=== PATIENT | female | born 1995 | race Caucasian/White ===

== ENCOUNTER 2019-04-05 12:41 | Observation (INO) | payer OTHER ==
--- NOTE | 2019-04-05 14:33 | XRAY ---
Indication: Decreased heart rate. Ultrasound biophysical profile study was performed. Comparison: None There is a single intrauterine with heart rate 127 bpm. Anterior placenta without abruption/previa. BPD measures 8.73 cm corresponding to 35 weeks 2 days. HC measures 32.21 cm corresponding to 36 weeks 3 days. AC measures 28.25 cm corresponding to 32 weeks 2 days. FL measures 6.21 cm corresponding to 32 weeks 1 day. RAIN is 15.2 cm. 2 points given for breathing movements, movements, tone, and qualitative amniotic fluid volume. Impression: 1. Single viable intrauterine with mean gestational age 34 weeks 0 days. Normal progression in the with respect to March 01, 2019 exam. 2. Total biophysical profile score is 8 out of 8.
[2019-04-05 15:07] VITALS: BP 105/55; PULSE 90; O2SAT 97
== END 2019-04-05 14:30 | disposition home or self-care (01) ==
LOC: OB 12:41
PROVIDERS: ADMIT Family Medicine; ATTEND Family Medicine
DX: Z34.83 Encounter for supervision of other normal pregnancy, third trimester (principal)
CPT/HCPCS: 59025; 76818; G0378

== ENCOUNTER 2019-04-12 13:13 | Observation (INO) | payer OTHER ==
[2019-04-12 13:47] LABS: Appearance TURBID (CLEAR); Bacteria RARE /HPF (NEGATIVE); Bilirubin NEGATIVE (NEGATIVE); Blood NEGATIVE Ery/ul (0-5); Epithelial Cells RARE /HPF (FEW); Glucose NEGATIVE (NEGATIVE); Ketones NEGATIVE (NEGATIVE); Leukocyte Esterase NEGATIVE (NEGATIVE); Mucus SLIGHT /HPF (NEGATIVE); Nitrite NEGATIVE (NEGATIVE); Protein,Urine Dip NEGATIVE (Negative); Specific Gravity 1.015 (1.005-1.025); Urobilinogen NEGATIVE mg/dL (0-1)
[2019-04-12 13:58] VITALS: BP 109/72; PULSE 84
[2019-04-12 14:31] LABS: Amphetamine,Urine NEGATIVE (NEGATIVE); Barbiturate,Urine NEGATIVE (NEGATIVE); Benzodiazepine,Urine NEGATIVE (NEGATIVE); Cocaine,Urine NEGATIVE (NEGATIVE); Methadone,Urine NEGATIVE (NEGATIVE); Opiate,Urine NEGATIVE (NEGATIVE); PCP,Urine NEGATIVE (NEGATIVE); THC,Urine NEGATIVE (NEGATIVE)
== END 2019-04-12 15:07 | disposition home or self-care (01) ==
LOC: OB 13:13
PROVIDERS: ADMIT Family Medicine; ATTEND Family Medicine
DX: Z34.03 Encounter for supervision of normal first pregnancy, third trimester (principal)
CPT/HCPCS: 59025; 80307; 81001; G0378

== ENCOUNTER 2019-04-28 10:05 | Observation (INO) | payer OTHER ==
[2019-04-28 10:46] VITALS: BP 118/77; PULSE 77
== END 2019-04-28 13:45 | disposition home or self-care (01) ==
LOC: OB 10:05 → UNDOADMOB 10:05 → UNDODISOB 13:45
PROVIDERS: ADMIT Family Medicine; ATTEND Family Medicine
DX: Z34.83 Encounter for supervision of other normal pregnancy, third trimester (principal)
CPT/HCPCS: G0378

== ENCOUNTER 2019-05-06 00:04 | Inpatient (IN) | payer OTHER ==
[2019-05-07] MEDS ORDERED: PITOCIN 30 UNITS/ LR 500 ML 500 ML IV SCH ×2 (00:01→08:30)
[2019-05-07] MEDS ORDERED: Zofran 4 MG/2 ML VIAL IV PRN (00:01)
[2019-05-07] MEDS ORDERED: Cervidil 10 MG VAG SCH (00:01)
[2019-05-07] MEDS ORDERED: XYLOCAINE 1% HCL 20 ML MDV IJ PRN (00:01)
[2019-05-07] MEDS ORDERED: BRETHINE 1 MG/ML SQ PRN (00:01)
[2019-05-07 00:47] LABS: Absolute Neutrophil Ct (ANC) 8.72 (1.4-6.9); BASOPHIL % 0.2 % (0.0-0.4); Basophil (Absolute #) 0.02 (0-0.4); Eosinophil % 2.7 % (0.00-5.0); Eosinophil (Absolute #) 0.32 (0-0.5); Hematocrit 34.6 % (35-47); Hemoglobin 11.5 gm/dl (12.0-16.0); Lymphocyte (Absolute #) 1.78 (1.0-4.6); Mean Cell Volume 96.9 fl (78-100); Mean Corpuscular Hemoglobin 32.2 pg (26-32); Mean Corpuscular Hgb Concent. 33.2 g/dl (32-36); Mean Platelet Volume 10.4 fl (6-9.5); Monocytes % 8.4 % (0.0-12.0); Neutrophil % 73.7 % (36.0-66.0); Platelet Count 233 K/mm3 (150-450); Red Blood Count 3.57 M/mm3 (4.1-5.4); Red Cell Distribution Width 13.4 % (11.5-14.0); White Blood Count 11.8 K/mm3 (4.0-10.5)
[2019-05-07 01:21] LABS: Amphetamine,Urine NEGATIVE (NEGATIVE); Barbiturate,Urine NEGATIVE (NEGATIVE); Benzodiazepine,Urine NEGATIVE (NEGATIVE); Cocaine,Urine NEGATIVE (NEGATIVE); Methadone,Urine NEGATIVE (NEGATIVE); Opiate,Urine NEGATIVE (NEGATIVE); PCP,Urine NEGATIVE (NEGATIVE); THC,Urine NEGATIVE (NEGATIVE)
[2019-05-07] MEDS: Lactated Ringers 1,000 ML IV SCH ×4 (02:53→20:34)
[2019-05-07] MEDS ORDERED: OB EPIDURAL NAROPIN/SUFENTANIL IN NACL EPIDURAL PRN (08:29)
[2019-05-07] MEDS ORDERED: Lactated Ringers 1,000 ML IV ONE (08:29)
[2019-05-07] MEDS ORDERED: Ephedrine Sulfate 50 MG/ML IV PRN (08:29)
[2019-05-07] MEDS: XYLOCAINE 2%/Epi 1:200000 20ML VIAL MPF IJ PRN ×2 (12:04→19:05)
[2019-05-07] MEDS: TYLENOL EXTRA STRENGTH 500 MG PO PRN ×2 (13:03→23:56)
[2019-05-07] MEDS ORDERED: Tylenol #3 Tablet PO ONE (18:06)
[2019-05-07] MEDS ORDERED: Sensorcaine 0.25% 10 ML ONE (18:53)
[2019-05-07] MEDS ORDERED: Dermoplast Spray TP PRN (23:38)
[2019-05-07] MEDS ORDERED: TUCKS TP PRN (23:38)
[2019-05-07] MEDS: MOTRIN 400 MG PO PRN (23:56)
[2019-05-08] MEDS: Lactated Ringers 1,000 ML IV SCH ×2 (01:13→21:17)
[2019-05-08] MEDS: NORCO 5/325 MG PO PRN ×4 (04:25→19:32)
[2019-05-08] MEDS: MOTRIN 400 MG PO PRN ×3 (05:57→18:56)
[2019-05-08 06:43] LABS: Absolute Neutrophil Ct (ANC) 9.77 (1.4-6.9); BASOPHIL % 0.2 % (0.0-0.4); Basophil (Absolute #) 0.02 (0-0.4); Eosinophil (Absolute #) 0.25 (0-0.5); Hematocrit 31.3 % (35-47); Hemoglobin 10.2 gm/dl (12.0-16.0); Lymphocyte (Absolute #) 1.56 (1.0-4.6); Lymphocytes % 12.4 % (24.0-44.0); Mean Cell Volume 98.4 fl (78-100); Mean Corpuscular Hemoglobin 32.1 pg (26-32); Mean Corpuscular Hgb Concent. 32.6 g/dl (32-36); Mean Platelet Volume 10.6 fl (6-9.5); Monocyte (Absolute #) 0.98 (0.0-1.3); Monocytes % 7.8 % (0.0-12.0); Neutrophil % 77.6 % (36.0-66.0); Platelet Count 230 K/mm3 (150-450); Red Blood Count 3.18 M/mm3 (4.1-5.4); Red Cell Distribution Width 13.4 % (11.5-14.0); White Blood Count 12.6 K/mm3 (4.0-10.5)
[2019-05-08] MEDS: Colace 100 MG PO SCH (09:48)
[2019-05-08] MEDS: FERREX 150 PO SCH (12:54)
[2019-05-09] MEDS: Colace 100 MG PO SCH ×2 (00:10→09:48)
[2019-05-09] MEDS: MOTRIN 400 MG PO PRN ×3 (00:59→16:42)
[2019-05-09 02:13] VITALS: O2SAT 99
[2019-05-09] MEDS: FERREX 150 PO SCH (09:48)
--- NOTE | 2019-05-09 11:18 | PCM.NOTE ---
Date and Time: 05/09/19 1116 Subjective Assessment: PPD 2 SP PT RESTING IN BED AND DONG WELL WITHOUT COMPLAINTS. PT WAS NOTED HAVING A SPINAL HEADACHE YESTERDAY AND BLOOD PATCH PLACED YESTERDAY EVENING AND NOW FEELING WELL WITOUT COMPLAINTS. VSS AFEBRILE ABD; SOFT UTERUS; FIRM LOCIA; MILD EXT; NO CLUBBING CYANOSIS OR EDEMA A/P SP PPD 2 DC HOME TODAY FU WITH PROVIDER IN 6 WKS OBJECTIVE DATA Vital Signs: Vital Signs - 24 hr Temp Pulse Resp BP Pulse Ox 05/09/19 10:00 97.7 F 101 H 18 103/68 05/09/19 02:00 98.8 F 87 18 111/74 99 05/08/19 20:00 98.6 F 80 20 101/65 99 05/08/19 17:30 99 F 82 18 103/70 Pain Assessment - Last Documented Pain Intensity [Anterior] 10 Pain Intensity 2 Pain Scale Used 0-10 Pain Scale Intake and Output: Intake & Output 05/06/19 05/07/19 05/08/19 05/09/19 11:59 11:59 11:59 11:59 Intake Total 375 8066 2950 Output Total 1100 Balance 375 8912 2950 Weight 85.275 kg Lab Results: Lab Results-Last 24 Hours 05/07/19 Range/Units 00:15 Hep Bs Antigen Non Reactive (Non Reactive)
--- NOTE | 2019-05-09 11:22 | PCM.DS ---
Discharge Summary Date of Admission: 05/07/19 00:39 Date of Discharge: MAY 09, 2019 Admitting Physician: DANIELLE CHRISTIANSON Primary Care Provider: DANIELLE CHRISTIANSON Allergies Allergies WOOLITE Allergy (Mild, Uncoded 04/28/19 10:31) [facility] Hospital Summary - Hospital Course Hospital Course: PT ADMITTED ON MAY 07 WITH CERVIDIL INDUCTION HOWEVER DIDNT TOLERATE CERVIDIL AND WAS SWITCHED TO PITOCIN AND SUBSEQUENTLY DELIVERED LIVE BABY BOY WITHOUT COMPLICATION AT 2230. DURING PERIOD DID WELL HOWEVER WAS NOTED HAVING SPINAL HEADACHE YESTERDAY EVENING AND SUBSEQUENTLY UNDERWENT BLOOD PATCH AND NOW FEELING VERY WELL. SHE HAD A STABLE HGB AT 10 AND NOW IS STABLE FOR DISCHARGE. PT IS TO FU WITH HER PROVIDER IN 6 WKS FOR CARE. ALL QUESTIONS ANSWERED TO HER SATISFACTION. - Vitals & Intake/Output Vital Signs: Vital Signs Temperature 97.7 F 05/09/19 10:00 Pulse Rate 101 H 05/09/19 10:00 Respiratory Rate 18 05/09/19 10:00 Blood Pressure 103/68 05/09/19 10:00 O2 Sat by Pulse Oximetry 99 05/09/19 02:00 Oxygen-Last Documented O2 Percentage 100% Intake & Output: Intake & Output 05/06/19 05/07/19 05/08/19 05/09/19 11:59 11:59 11:59 11:59 Intake Total 375 8066 2950 Output Total 1100 Balance 375 7466 2950 Weight 85.275 kg - Lab Result Diagrams: 05/08/19 06:30 Lab Results-Last 24 Hrs: Lab Results-Last 24 Hours 05/07/19 Range/Units 00:15 Hep Bs Antigen Non Reactive (Non Reactive) Micro Results-Entire Visit: Microbiology 05/07/19 13:17 Urine Culture - Final Catherized NO GROWTH - Discharge Disposition: Home, Self-Care Condition: Stable Prescriptions: No Action Vits W-Ca,Fe,FA(<1Mg) [] 1 each PO DAILY Follow up with: DANIELLE CHRISTIANSON [Primary Care Provider] - 1 Week
[2019-05-09 19:04] VITALS: BP 109/77; PULSE 90
== END 2019-05-09 18:55 | disposition home or self-care (01) | DRG 807 ==
LOC: OB 05-07 00:39 → OBSVTOIN 05-07 20:32
PROVIDERS: ADMIT Family Medicine; ATTEND Family Medicine
PROC: 10E0XZZ Delivery of Products of Conception, External Approach (ICD-10-PCS; principal; 2019-05-07)
DX: O80 Encounter for full-term uncomplicated delivery (principal); Z37.0 Single live birth; Z3A.39 39 weeks gestation of pregnancy; O89.4 Spinal and epidural anesthesia-induced headache during the puerperium
CPT/HCPCS: 36415; 62273; 80307; 85025; 87086; 87340; G0378; J2590; J2795; A9270-GY